=== PATIENT | female | born 1965 | race Caucasian/White ===

== ENCOUNTER 2017-11-30 17:52 | Emergency (ER) | payer OTHER ==
[~2017-11-30] VITALS: Ht 160 cm; Wt 68.0 kg
[~2017-11-30 17:52] MED LIST: AMOX500; Cipro500 MG PO; Flagyl500 MG PO; HYDACE5 PO; LEVFLO500 PO; LORA1 PO; NAPR375 PO; NAPR500 PO; PROM25 PO; RXHYDACE PO; RXONDA4ODT MM; SULTRIDS PO
[2017-11-30] MEDS ORDERED: Norco 5-325 Ta1 EACH PO (18:56)
[2017-11-30] MEDS ORDERED: Crutch1 EACH MISC (18:56)
== END 2017-11-30 19:40 | disposition home or self-care (01) ==
LOC: ER 17:52
DX: S89.91XA Unspecified injury of right lower leg, initial encounter (principal); F17.200 Nicotine dependence, unspecified, uncomplicated; W19.XXXA Unspecified fall, initial encounter
CPT/HCPCS: 73564; 99283